=== PATIENT | female | born 1960 | race Caucasian/White ===

== ENCOUNTER 2021-01-17 17:41 | Emergency (ER) | payer OTHER, SELFPAY ==
[2021-01-17 18:08] VITALS: BP 126/70; PULSE 76; RESP 18; TEMP 36.4; O2SAT 95; BMI 46.9
[2021-01-17] MEDS: Diphth,Pertus(ACell),Tet Adult 0.5 ML SYRINGE IM (18:33)
[2021-01-17] MEDS: Lidocaine HCl 2 % MPF 5 ML VIAL 10 ML SUBCUT (18:35)
--- NOTE | 2021-01-17 18:40 | ED_ITS ---
HPI - Wound/Laceration General Chief Complaint: Wound/Laceration Stated Complaint: lac Source: patient Mode of arrival: ambulatory Limitations: no limitations History of Present Illness HPI narrative: 60-year-old female presents with laceration to the left index finger. The knife slipped while she was cutting an avocado. She was able to wash the wound out, but was not able to control the bleeding. She does not know when her last Tdap vaccine was updated. She does have full range of motion to the finger and does not report any other injuries. Onset (ago): hour(s) (Within the hour of arrival) Place: home Patient tetanus UTD: No Context: accidental Associated symptoms: pain Treatments prior to arrival: bandage Related Data Allergies Allergy/AdvReac Type Severity Reaction Status Date / Time No Known Allergies Allergy Verified 01/17/21 18:10 Review of Systems Review of Systems: Constitutional: No Fever, No Chills ENT/Mouth: No Ear Pain, No Hoarseness, No sore throat Eyes: No Eye Pain, No Swelling, No Redness, No Foreign Body Cardiovascular: No Chest Pain, No SOB Respiratory: No Cough, No Dyspnea Gastrointestinal: No Nausea, No Vomiting, No Diarrhea, No abdominal Pain Genitourinary: No Dysuria, No Hematuria Musculoskeletal: positive left index finger pain, No Myalgias, No Joint Swelling Skin: Positive laceration to the left index finger, No rash Neuro: No Weakness, No Numbness, No Paresthesias, No Loss of Consciousness, No Dizziness, No Headache Psych: No Anxiety/Panic, No Depression Heme/Lymph: no easy bruising, no Lymphadenopathy Endocrine: No Polyuria, No Polydipsia Yes all other systems are reviewed and are negative FOR[facility]LY [facility] Past Medical History Attestation statement: The following information was validated with the patient. Source: old records reviewed Medical History Diabetes Social History Social History Alcohol intake: never Smoked in Last 30 Days: No Use of substances other than those prescribed or required for medical reasons: No Advance Directives: No Advance Directives Information Provided: Yes Patient : No Physical Exam Vital Signs: Vital Signs: Last Vital Signs Temp 97.6 F 01/17/21 18:08 Pulse 76 01/17/21 18:08 Resp 18 01/17/21 18:08 BP 126/70 01/17/21 18:08 Pulse Ox 95 01/17/21 18:08 Body Mass Index 46.9 Appearance: Alert. Oriented X3. No acute distress. Eyes: Pupils equal, round and reactive to light. ENT: Pharynx normal. Neck: Normal inspection. Neck supple. CVS: Normal heart rate and rhythm. Pulses normal. Respiratory: No respiratory distress. Breath sounds normal. Abdomen: Soft and nontender. Skin: Positive 2 cm laceration to the base of the left index finger, Skin warm and dry. Normal skin color. Normal skin turgor. Extremities: Full range of motion to all digits, strength 5/5, brisk capillary refill, equal pulses to the extremities. Neurovascularly intact. Neuro: No motor deficit. No sensory deficit. Course Course Course Narrative: 60-year-old female presents with a laceration to the base of the left index finger after the knife slipped cutting an avocado. We updated her Tdap vaccine. Prepped and draped in sterile fashion. Irrigated with copious amounts of normal saline. Cleaned with Betadine. Patient tolerated procedure well. Please refer to procedure note for full detail. Approximately 30 minutes after laceration repair, patient continues to maintain brisk capillary refill, equal pulses, full range of motion and strength, and is neurovascularly intact. Patient does understand discharge instructions and will return in 10 days to have sutures removed. Procedures Laceration Laceration 1: Site: hand Side (If applicable): left Size (cm): 2 Description: linear Depth: simple, single layer Local Anesthetic: lidocaine 2% Amount of anesthesia used (mL): 6 Pre-repair: wound explored, irrigated extensively and deep structures intact Skin layer closed with: nylon Size (cm): 5-0 Number of sutures: 6 Technique: simple, interrupted MDM - Wound/Laceration Differential Diagnosis Differential diagnosis: Likely laceration Medical Records Attestation: I reviewed the patient's medical records. Discharge Plan Discharge Clinical Impression: Laceration Patient Disposition: Home, Self-Care Instructions: Care For Your Stitches (ED), Finger Laceration (ED) Additional Instructions: You were evaluated for laceration to the left index finger. We placed 5 sut ures. Please follow suture care instructions. Return in 10 days to have sutures from and monitor for signs symptoms of infection. If you notice signs and symptoms of infection please return for medical evaluation. We updated your Tdap vaccine today. Thank you for choosing this emergency department for evaluation. Please follow-up with primary care physician as needed. Return to the emergency department for any new, concerning, or worsening symptoms. Interventions: ED Discharge Assessment Last Done: 01/17/21 19:29 Discharge Date/Time: 01/17/21 19:31
== END 2021-01-17 19:31 | disposition home or self-care (01) ==
PROVIDERS: Emergency Provider Emergency Medicine Emergency Medical Services; PCP Internal Medicine
DX: S61.211A Laceration without foreign body of left index finger without damage to nail, initial encounter (principal); W26.0XXA Contact with knife, initial encounter; Y93.G3 Activity, cooking and baking; Y92.9 Unspecified place or not applicable; Y99.9 Unspecified external cause status
CPT/HCPCS: 12001; 90471; 90715; 99284